=== PATIENT | female | born 1985 | race African-American/Black ===

== ENCOUNTER 2016-07-13 00:28 | Emergency (ER) | payer SELFPAY ==
[~2016-07-13] VITALS: Ht 165.1 cm; Wt 64.0 kg
[2016-07-13 00:39] VITALS: Ht 165.1 cm; Wt 64.0 kg
--- NOTE | 2016-07-13 04:19 | RADRPT ---
PROCEDURE: US right lower extremity venous Doppler CLINICAL INDICATION: Right leg swelling TECHNIQUE: Multiple sonographic images of the right lower extremity deep venous system was obtaine d utilizing grayscale, color-flow, compressive sonography and Doppler imaging with augmentation. COMPARISON: No pertinent prior examinations were submitted for comparison. FINDINGS: There is normal compressibility and flow within the right common femoral, superficial femoral, popli teal, and peroneal veins. IMPRESSION: No sonographic evidence for deep venous thrombosis. RPTAT: HIKT .Shaun Tan MD, MD Date Time Electronically viewed and signed by .Shaun Tan MD, on 07/13/2016 04:19 .T/
[2016-07-13] MEDS ORDERED: CLOT30CR24 TOP (04:44)
[2016-07-13] MEDS ORDERED: SODI126M NASAL (04:50)
[2016-07-13 04:56] VITALS: BP 126/69; PULSE 88; RESP 18; TEMP 98
--- NOTE | 2016-07-13 05:18 | ERD ---
ER Documentation Chief Complaint Date/Time DATE: 07/13/16 TIME: 05:14 Chief Complaint CONGESTION, SORE THROAT, NON-PRODUCTIVE COUGH X 3 DAYS; RLE PAIN TODAY. HPI 31-year-old female complaining of cough, congestion, sore throat, and fatigue 4 days. Cough is nonproductive. She complained of lateral right lower leg pain 1 day. Describes pain as throbbing, deep, and tight feeling. Pain is intermittent. Denies fever or chills. Denies shortness of breath. Denies injuries to her leg. ROS All systems reviewed and are negative except as per history of present illness. Medications Home Meds Active Scripts Sodium Chloride (Saline Nasal Mist) 126 Ml Mist, 2 SPRAY NASAL Q2H Y for NASAL CONGESTION, #1 BOTTLE Prov:VENANCIO BOJORQUEZ. CERTIFED REFRIGERATION OPERATOR 07/13/16 Discontinued Scripts Clotrimazole* (Clotrimazole* AF) 1% - 30 Gm Cream.gm., 1 APPLIC TOP BID for 14 Days, TUB Prov:VENANCIO BOJORQUEZ CERTIFED REFRIGERATION OPERATOR 07/13/16 Allergies Allergies: Coded Allergies: No Known Allergy (Unverified , 07/13/16) PMhx/Soc Medical and Surgical Hx: pt denies Medical Hx, pt denies Surgical Hx Hx Alcohol Use: No Hx Substance Use: No Hx Tobacco Use: No Smoking Status: Unknown if ever smoked Physical Exam Vitals Vital Signs Date Time Temp Pulse Resp B/P Pulse Ox O2 Delivery O2 Flow Rate FiO2 07/13/16 04:56 98.0 88 18 126/69 98 Room Air 07/13/16 00:39 97.8 79 18 134/58 98 Physical Exam General impression: Well-developed, well-nourished, 31-year-old female, alert, oriented, in no acute distress Head: Normocephalic, atraumatic. Eyes: PERRL, EOM normal. Conjunctiva not injected. ENT: Nasal mucosa erythematous and swollen. Oral mucosa and oropharynx are normal. Neck: Supple, nontender. No lymphanopathy. No nuchal rigidity. Respiration: Normal respiratory effort. Lungs clear to auscultate bilaterally. No wheezes, rales or rhonchi. Cardiovascular: Regular rate and rhythm. No murmurs or extra heart sounds. Extremities: Extremities normal to inspection, nontender. ROM normal. Right lower extremity not erythematous, not edematous, and nontender. Neuro: Mental status normal, speech normal. Skin: Normal turgor. No rash or lesions. Psych: Normal mood and affect. Procedures/MDM Patient is afebrile, in no respiratory distress. Lungs are clear to auscultate. I doubt that patient has pneumonia or bronchitis. Likely patient's symptoms are result of viral upper respiratory infection. Patient also complaining of right lower leg pain 1 day. Doppler ultrasound obtained to rule out DVT. No DVT is seen. Patient is able to bear weight and walk without a limp. I doubt fractures or dislocations. Patient appears well, stable for discharge and outpatient management. Medical decision making shared with patient and family. Education provided to patient and family. Patient and family expressed understanding of the plan. Medications on discharge: Saline nasal spray. Follow-up: Primary care provider in 2-3 days or return to ED if worse. Departure Diagnosis: Primary Impression: Upper respiratory infection Additional Impression: Right leg pain Condition: Stable Patient Instructions: Adult Self-Care for Colds Referrals: [facility] YOU HAVE RECEIVED A MEDICAL SCREENING EXAM AND THE RESULTS INDICATE THAT YOU DO NOT HAVE A CONDITION THAT REQUIRES URGENT TREATMENT IN THE EMERGENCY DEPARTMENT. FURTHER EVALUATION AND TREATMENT OF YOUR CONDITION CAN WAIT UNTIL YOU ARE SEEN IN YOUR DOCTORS OFFICE WITHIN THE NEXT 1-2 DAYS. IT IS YOUR RESPONSIBILITY TO MAKE AN APPOINTMENT FOR FOLOW-UP CARE. IF YOU HAVE A PRIMARY DOCTOR --you should call your primary doctor and schedule an appointment IF YOU DO NOT HAVE A PRIMARY DOCTOR YOU CAN CALL OUR PHYSICIAN REFERRAL HOTLINE AT IF YOU CAN NOT AFFORD TO SEE A PHYSICIAN YOU CAN CHOSE FROM THE FOLLOWING [facility] [address] [facility] [address] [facility] [address] [facility]. [facility] [address] [facility]. [facility] [address] [facility]. [facility] [address] [facility]. [facility]. [address] Additional Instructions: Call your primary care doctor TOMORROW for an appointment during the next 2-3 days.See the doctor sooner or return here if your condition worsens before your appointment time. VENANCIO BOJORQUEZ NP Jul 13, 2016 05:18
== END 2016-07-13 04:57 | disposition home or self-care (01) ==
LOC: FTE 00:28
DX: J06.9 Acute upper respiratory infection, unspecified (principal); M79.604 Pain in right leg
CPT/HCPCS: 93971

== ENCOUNTER 2016-11-02 22:36 | Emergency (ER) | payer MEDICAID ==
[~2016-11-02] VITALS: Ht 170.2 cm; Wt 66.5 kg
[~2016-11-02 22:36] MED LIST: SODI126M NASAL
[2016-11-02 22:40] VITALS: Ht 170.2 cm; Wt 66.5 kg
[2016-11-03] MEDS ORDERED: MECL-77 PO (00:36)
[2016-11-03 01:02] VITALS: BP 102/68; PULSE 68; RESP 16; TEMP 97.9
--- NOTE | 2016-11-03 06:28 | ERD ---
ER Documentation Chief Complaint Date/Time DATE: 11/03/16 TIME: 06:25 Chief Complaint states hearing loss left ear, head ache, abd pain since last night HPI 31-year-old female presenting with complaints of abnormal sounds in her left ear. Her symptoms started while she was sleeping. She states that she started getting a sound in her left ear that sounded like a broken radio. She has associated mild left-sided headache. The noise improved throughout the day and she was not worried about it, then it suddenly started getting worse again and she started getting some difficulty with balance and felt lightheaded. She denies any associated earache, fevers, chills, neck pain or stiffness, vision disturbance, nausea, vomiting. She states that right now she feels a little better and does not have that loud sound in her left ear. She is able to walk without any dizziness. Her headache is very mild. ROS All systems reviewed and are negative except as per history of present illness. Medications Home Meds Active Scripts Meclizine Hcl* (Meclizine Hcl*) 25 Mg Tablet, 25 MG PO Q8H Y for DIZZINESS, #20 TAB Prov:SIOMARA BERRIOS MD 11/03/16 Sodium Chloride (Saline Nasal Mist) 126 Ml Mist, 2 SPRAY NASAL Q2H Y for NASAL CONGESTION, #1 BOTTLE Prov:VENANCIO BOJORQUEZ NP 07/13/16 Allergies Allergies: Coded Allergies: No Known Allergy (Unverified , 11/02/16) PMhx/Soc Hx Alcohol Use: No Hx Substance Use: No Hx Tobacco Use: Yes Smoking Status: Light tobacco smoker FmHx Family History: No diabetes Physical Exam Vitals Vital Signs Date Time Temp Pulse Resp B/P Pulse Ox O2 Delivery O2 Flow Rate FiO2 11/03/16 01:02 97.9 68 16 102/68 100 Room Air 11/02/16 22:40 97.9 79 20 122/69 100 Physical Exam Const: Well-appearing, well-nourished, no apparent distress, nontoxic Head: Atraumatic Eyes: Normal Conjunctiva, PERRLA, EOMI, no nystagmus ENT: Normal External Ears, Nose and Mouth. TMs normal bilaterally Neck: Full range of motion. No meningismus. Resp: Clear to auscultation bilaterally Cardio: Regular rate and rhythm, no murmurs Abd: Soft, non tender, non distended. Normal bowel sounds Skin: No petechiae or rashes Back: No midline or flank tenderness Ext: No cyanosis, or edema Neur: Awake and alert and oriented 3, cranial nerves intact, strength and sensations intact in all 4 extremities, normal gait, cerebellar exam normal Psych: Normal Mood and Affect Procedures/MDM Patient is presenting with abnormal hearing in her left ear with some feelings of imbalance. There is no evidence of otitis media. I have a low suspicion for sinusitis. I do not suspect meningitis or encephalitis. I suspect the patient is suffering from acute labyrinthitis. I discussed my suspicions with the patient. I recommended follow-up with PMD in the next 2 days for reevaluation. Meclizine prescription was given to be used as needed for dizziness. Return precautions were given. Patient was discharged in stable condition. Departure Diagnosis: Primary Impression: Hearing abnormally acute Laterality: left Qualified Code: H93.232 - Hearing abnormally acute, left Additional Impression: Dizziness Condition: Stable Patient Instructions: Inner Ear Problems: Causes of Dizziness (Vertigo), Labyrinthitis Referrals: [facility] YOU HAVE RECEIVED A MEDICAL SCREENING EXAM AND THE RESULTS INDICATE THAT YOU DO NOT HAVE A CONDITION THAT REQUIRES URGENT TREATMENT IN THE EMERGENCY DEPARTMENT. FURTHER EVALUATION AND TREATMENT OF YOUR CONDITION CAN WAIT UNTIL YOU ARE SEEN IN YOUR DOCTORS OFFICE WITHIN THE NEXT 1-2 DAYS. IT IS YOUR RESPONSIBILITY TO MAKE AN APPOINTMENT FOR FOLOW-UP CARE. IF YOU HAVE A PRIMARY DOCTOR --you should call your primary doctor and schedule an appointment IF YOU DO NOT HAVE A PRIMARY DOCTOR YOU CAN CALL OUR PHYSICIAN REFERRAL HOTLINE AT IF YOU CAN NOT AFFORD TO SEE A PHYSICIAN YOU CAN CHOSE FROM THE FOLLOWING [facility] [address] [facility] [address] [facility] [address] [facility] [address] [facility] [address] [facility]. [facility]. [address] Additional Instructions: Return to the ER with any worsening symptoms. Follow up with your primary care doctor in 2-3 days if your symptoms do not improve. SIOMARA BERRIOS MD November 03, 2016 06:28
== END 2016-11-03 01:04 | disposition home or self-care (01) ==
LOC: FTE 22:36
DX: H93.232 Hyperacusis, left ear (principal); F17.210 Nicotine dependence, cigarettes, uncomplicated; R42 Dizziness and giddiness
CPT/HCPCS: 99283

== ENCOUNTER 2017-01-08 22:20 | Emergency (ER) | payer MEDICAID, OTHER ==
[~2017-01-08] VITALS: Ht 165.1 cm; Wt 66.0 kg
[~2017-01-08 22:20] MED LIST changes: +MECL-77 PO
[2017-01-08 22:27] VITALS: Ht 165.1 cm; Wt 66.0 kg
[2017-01-08] MEDS ORDERED: ONDANSETRON (ODT) 4 MG TAB ODT STA (23:51)
[2017-01-09] MEDS ORDERED: LIDOCAINE/MYLANTA 40 ML BTL PO ONE
[2017-01-09 00:43] LABS: ADD SCAN DIFF NO
[2017-01-09 00:46] LABS: BASOPHILS % 0.4 % (0.0-2.0); EOSINOPHILS # 0.2 10^3/ul (0.0-0.5); EOSINOPHILS % 3.4 % (0.0-7.0); HEMATOCRIT 34.3 % (37.0-47.0); HEMOGLOBIN 11.5 g/dl (12.0-16.0); LYMPHOCYTES # 1.5 10^3/ul (0.8-2.9); LYMPHOCYTES % 26.2 % (15.0-51.0); MEAN CORPUSCULAR HEMOGLOBIN 30.3 pg (29.0-33.0); MEAN CORPUSCULAR HGB CONC 33.5 g/dl (32.0-37.0); MEAN CORPUSCULAR VOLUME 90.5 fl (82.0-101.0); MEAN PLATELET VOLUME 10.6 fl (7.4-10.4); MONOCYTE # 0.5 10^3/ul (0.3-0.9); MONOCYTES % 8.2 % (0.0-11.0); NEUTROPHIL # 3.4 10^3/ul (1.6-7.5); NEUTROPHILS % 61.4 % (39.0-77.0); PLATELET COUNT 217 10^3/UL (140-415); RED BLOOD COUNT 3.79 10^6/ul (4.20-5.40); RED CELL DISTRIBUTION WIDTH 12.8 % (11.5-14.5); WHITE BLOOD COUNT 5.6 10^3/ul (4.8-10.8)
[2017-01-09 00:56] LABS: ADD UMIC NO; UR ASCORBIC ACID NEGATIVE (NEGATIVE); UR BILIRUBIN (Dip) NEGATIVE (NEGATIVE); UR BLOOD (Dip) NEGATIVE (NEGATIVE); UR CLARITY CLEAR (CLEAR); UR COLOR STRAW (YELLOW); UR GLUCOSE (Dip) NEGATIVE (NEGATIVE); UR KETONES (Dip) NEGATIVE (NEGATIVE); UR LEUKOCYTE ESTERASE (Dip) NEGATIVE Leu/ul (NEGATIVE); UR NITRITE (Dip) NEGATIVE (NEGATIVE); UR SPECIFIC GRAVITY (Dip) 1.005 (1.003-1.030); UR TOTAL PROTEIN (Dip) NEGATIVE (NEGATIVE); UR UROBILINOGEN (Dip) NEGATIVE (NEGATIVE)
[2017-01-09 01:11] LABS: ALBUMIN 4.5 g/dl (3.3-4.9); ALBUMIN/GLOBULIN RATIO 1.73; BILIRUBIN,INDIRECT 0.3 mg/dl (0-1.1); BILIRUBIN,TOTAL 0.3 mg/dl (0.2-1.3); CALCIUM 9.6 mg/dl (8.4-10.2); CREATININE 0.74 mg/dl (0.44-1.00); POTASSIUM 4.5 mmol/L (3.5-5.1); TOTAL PROTEIN 7.1 g/dl (6.1-8.1)
--- NOTE | 2017-01-09 01:46 | RADRPT ---
PROCEDURE: Ultrasound of the abdomen. CLINICAL INDICATION: Right upper quadrant pain. TECHNIQUE: Sonographic images of the abdomen were performed. COMPARISON: No pertinent prior examinations were submitted for comparison. FINDINGS: Liver: The liver is normal in echogencity and size measuring approximately 15.2 cm. The hepatic vei ns and portal veins are patent with appropriate directional flow. No intrahepatic ductal dilatation is seen. Gallbladder: The gallbladder is not distended and has normal wall thickness. No pericholecystic flu id or gallstones are visualized. The common duct measures 3.4 mm. Pancreas: There is limited evaluation of the pancreatic body and tail. The visualized portions of the pancreas are unremarkable. Kidneys: The right kidney measures 10.3 cm. There is normal corticomedullary differentiation. Ther e is no evidence of renal calculus or hydronephrosis. IVC: The visualized portion of the inferior vena cava is unremarkable. Aorta: Normal in size. Free fluid: None. IMPRESSION: Unremarkable right upper quadrant ultrasound. RPTAT: HIKT .Shaun Tan MD, MD Date Time Electronically viewed and signed by .Shaun Tan MD, on 01/09/2017 01:46 .T/
[2017-01-09] MEDS ORDERED: LOPE2CAP PO (01:56)
[2017-01-09] MEDS ORDERED: SIME125T7 PO (01:56)
[2017-01-09] MEDS ORDERED: ONDA-43 PO (01:57)
[2017-01-09] MEDS ORDERED: FAMO-96 PO (01:58)
--- NOTE | 2017-01-09 02:34 | ERD ---
ER Documentation Chief Complaint Date/Time DATE: 01/09/17 TIME: 02:26 Chief Complaint diarrhea for a week, nausea, loss of appetite and fatigue HPI This is a 31-year-old female that presents to the ER with multiple complaints. Patient states that for the last week she has had diarrhea and feels nauseous. She also complains that she feels bloated. She however denies any vomiting. She is also complaining of extreme fatigue, dizziness which is described as if she is going to fall, she also has decreased appetite and epigastric pain that radiates throughout her upper abdomen. Patient is additionally complaining of heart palpitations, she denies any chest pain or shortness of breath. Patient is worried that she has a leaky gut syndrome. Patient denies any urinary frequency or dysuria. She denies any fevers or chills. She denies any cough or cold symptoms. ROS 12 point review of systems was done, all negative except per HPI. Medications Home Meds Active Scripts Famotidine* (Pepcid*) 20 Mg Tablet, 20 MG PO BID for 14 Days, TAB Prov:XOCHITL FLANNERY 01/09/17 Ondansetron Hcl* (Zofran*) 4 Mg Tab, 4 MG PO Q4H Y for NAUSEA AND OR VOMITING for 3 Days, TAB Prov:XOCHITL FLANNERY 01/09/17 Loperamide Hcl* (Imodium*) 2 Mg Capsule, 2 MG PO .AFTER EA LOOSE BM Y for DIARRHEA, #10 TAB Prov:XOCHITL FLANNERY 01/09/17 Simethicone (Gas-X) 125 Mg Tab.chew, 125 MG PO BID for 3 Days, TAB.CHEW Prov:XOCHITL FLANNERY 01/09/17 Meclizine Hcl* (Meclizine Hcl*) 25 Mg Tablet, 25 MG PO Q8H Y for DIZZINESS, #20 TAB Prov:SIOMARA BERRIOS MD 11/03/16 Sodium Chloride (Saline Nasal Mist) 126 Ml Mist, 2 SPRAY NASAL Q2H Y for NASAL CONGESTION, #1 BOTTLE Prov:VENANCIO BOJORQUEZ NP 07/13/16 Allergies Allergies: Coded Allergies: No Known Allergy (Unverified , 11/02/16) PMhx/Soc Medical and Surgical Hx: pt denies Medical Hx, pt denies Surgical Hx Hx Alcohol Use: No Hx Substance Use: No Hx Tobacco Use: Yes Smoking Status: Current every day smoker Physical Exam Vitals Vital Signs Date Time Temp Pulse Resp B/P Pulse Ox O2 Delivery O2 Flow Rate FiO2 01/08/17 22:27 98.0 85 18 127/73 100 Physical Exam GENERAL: The patient is well developed and appropriate for usual state of health , in no apparent distress. HEENT: Atraumatic. Conjunctivae are pink. Pupils equal, round, and reactive to light. Extraocular muscles are grossly intact. No nystagmus. Bilateral tympanic membranes are clear with no evidence of erythema, bulging or perforation. NECK: C-spine is soft and supple. There is no cervical lymphadenopathy. CHEST: Clear to auscultation bilaterally. There are no rales, wheezes or rhonchi. HEART: Regular rate and rhythm. No murmurs, clicks, rubs or gallops. EXTREMITIES: Equal pulses bilaterally. There is no peripheral clubbing, cyanosis or edema. No focal swelling or erythema. Full range of motion. Grossly neurovascularly intact. NEURO: Alert and oriented. Cranial nerves II through XII are intact. Motor strength in all 4 extremities with 5/5 strength. Sensation grossly intact. Normal speech and gait. Negative Rhomberg. +2 DTRs. SKIN: There is no apparent rash or petechia. The skin is warm and dry. Result Diagram: 01/09/17 0022 01/09/17 0022 Results 24 hrs Laboratory Tests Test 01/09/17 00:00 01/09/17 00:22 Urine Color STRAW Urine Clarity CLEAR Urine pH 7.0 Urine Specific [place] 1.005 Urine Ketones NEGATIVEmg/dL Urine Nitrite NEGATIVEmg/dL Urine Bilirubin NEGATIVEmg/dL Urine Urobilinogen NEGATIVEmg/dL Urine Leukocyte Esterase NEGATIVELeu/ul Urine Hemoglobin NEGATIVEmg/dL Urine Glucose NEGATIVEmg/dL Urine Total Protein NEGATIVEmg/dl White Blood Count 5.610^3/ul Red Blood Count 3.7910^6/ul Hemoglobin 11.5g/dl Hematocrit 34.3% Mean Corpuscular Volume 90.5fl Mean Corpuscular Hemoglobin 30.3pg Mean Corpuscular Hemoglobin Concent 33.5g/dl Red Cell Distribution Width 12.8% Platelet Count 15574^3/UL Mean Platelet Volume 10.6fl Neutrophils % 61.4% Lymphocytes % 26.2% Monocytes % 8.2% Eosinophils % 3.4% Basophils % 0.4% Nucleated Red Blood Cells % 0.0/100WBC Neutrophils # 3.410^3/ul Lymphocytes # 1.510^3/ul Monocytes # 0.510^3/ul Eosinophils # 0.210^3/ul Basophils # 0.010^3/ul Nucleated Red Blood Cells # 0.010^3/ul Sodium Level 140mmol/L Potassium Level 4.5mmol/L Chloride Level 99mmol/L Carbon Dioxide Level 29mmol/L Anion Gap 17 Blood Urea Nitrogen 7mg/dl Creatinine 0.74mg/dl Glucose Level 101mg/dl Calcium Level 9.6mg/dl Total Bilirubin 0.3mg/dl Direct Bilirubin 0.00mg/dl Indirect Bilirubin 0.3mg/dl Aspartate Amino Transf (AST/SGOT) 17IU/L Alanine Aminotransferase (ALT/SGPT) 24IU/L Alkaline Phosphatase 43IU/L Total Protein 7.1g/dl Albumin 4.5g/dl Globulin 2.60g/dl Albumin/Globulin Ratio 1.73 Lipase 39U/L Current Medications Medications (Trade) Dose Ordered Sig/Mandy Route PRN Reason Start Time Stop Time Status Last Admin Dose Admin Miscellaneous Medication (Gi Cocktail (2)) 40 ml ONCE ONCE PO 01/09/17 00:00 01/09/17 00:01 DC Ondansetron HCl (Zofran Odt) 4 mg ONCE STAT ODT 01/08/17 23:51 01/08/17 23:55 DC Procedures/MDM This is a 31-year-old female that presents to the ER with multiple complaints. Patient diarrhea and nausea is likely viral in etiology. Patient's fatigue and dizziness may be secondary to viral process. There is no evidence of leukocytosis, transaminitis, increase in lipase or electrolyte abnormalities. Because patient had epigastric pain ultrasound of the gallbladder was taken however there was no evidence of gallstones. EKG was taken secondary to patient complaining of palpitations, EKG was normal: [address] elevation or t wave inversions. Patient is afebrile and well-appearing. I do not believe patient has leaky gut syndrome and she has not had any resection of her bowels. Patient will be sent home with Imodium, Zofran, famotidine. She is to follow- up with her primary care doctor within 1-2 days return to ER sooner if symptoms worsen. My medical decision making shared with the patient she understands and agrees with plan. Departure Diagnosis: Primary Impression: Weakness Condition: Stable Patient Instructions: Weakness, Unk Cause Additional Instructions: Call your primary care doctor TOMORROW for an appointment during the next 1-2 days.See the doctor sooner or return here if your condition worsens before your appointment time. XOCHITL FLANNERY Jan 09, 2017 02:33
== END 2017-01-09 02:09 | disposition home or self-care (01) ==
LOC: FTE 22:20
DX: R53.1 Weakness (principal); R11.0 Nausea; F17.210 Nicotine dependence, cigarettes, uncomplicated
CPT/HCPCS: 76705; 80053; 81003; 83690; 85025; 93005; Z7502; Z7610

== ENCOUNTER 2017-02-02 15:22 | Emergency (ER) | payer OTHER ==
[~2017-02-02] VITALS: Ht 170.2 cm; Wt 63.6 kg
[~2017-02-02 15:22] MED LIST changes: +FAMO-96 PO; +LOPE2CAP PO; +ONDA-43 PO; +SIME125T7 PO
[2017-02-02 15:25] VITALS: Ht 170.2 cm; Wt 63.6 kg
--- NOTE | 2017-02-02 16:37 | ERD ---
ER Documentation Chief Complaint Date/Time DATE: 02/02/17 TIME: 16:27 Chief Complaint nausea and fatigue x1wk. BIB R881 HPI This 31-year-old female brought in by paramedics to emergency for evaluation of fatigue, nausea, "thyroid burning", abdominal pain described as "heartburn" and fatigue. Patient denies chest pain, shortness of breath, dizziness, palpitation. Patient states that she was seen a month ago and now she feels worse than she did at that particular visit. Chart review shows she had a full evaluation including labs which documents no acute anemia or infectious process. Patient denies seeing her primary care physician but states she has an appointment February 17 for a physical exam. Patient reports she has 1 child a 6-year-old daughter at home, reports she has poor diet and frequently skips meals. States that she gets nausea with throat burning and sore throat intermittently, patient states she did not want to take any medication for her "heartburn symptoms and has not seen a physician for this complaint. ROS All systems reviewed and are negative except as per history of present illness. Medications Home Meds Active Scripts Famotidine* (Pepcid*) 20 Mg Tablet, 20 MG PO BID for 14 Days, TAB Prov:XOCHITL FLANNERY 01/09/17 Ondansetron Hcl* (Zofran*) 4 Mg Tab, 4 MG PO Q4H Y for NAUSEA AND OR VOMITING for 3 Days, TAB Prov:XOCHITL FLANNERY 01/09/17 Loperamide Hcl* (Imodium*) 2 Mg Capsule, 2 MG PO .AFTER EA LOOSE BM Y for DIARRHEA, #10 TAB Prov:XOCHITL FLANNERY 01/09/17 Simethicone (Gas-X) 125 Mg Tab.chew, 125 MG PO BID for 3 Days, TAB.CHEW Prov:XOCHITL FLANNERY 01/09/17 Meclizine Hcl* (Meclizine Hcl*) 25 Mg Tablet, 25 MG PO Q8H Y for DIZZINESS, #20 TAB Prov:SIOMARA BERRIOS MD 11/03/16 Sodium Chloride (Saline Nasal Mist) 126 Ml Mist, 2 SPRAY NASAL Q2H Y for NASAL CONGESTION, #1 BOTTLE Prov:VENANCIO BOJORQUEZ NP 07/13/16 Allergies Allergies: Coded Allergies: No Known Allergy (Unverified , 11/02/16) PMhx/Soc Medical and Surgical Hx: pt denies Medical Hx, pt denies Surgical Hx Hx Alcohol Use: No Hx Substance Use: No Hx Tobacco Use: Yes Smoking Status: Never smoker Physical Exam Vitals Vital Signs Date Time Temp Pulse Resp B/P Pulse Ox O2 Delivery O2 Flow Rate FiO2 02/02/17 15:25 98.4 90 20 118/74 100 Vitals stable, triage notes reviewed Physical Exam Const: Well-nourished, well-appearing, no acute distress Head: Atraumatic Eyes: Normal Conjunctiva, PERRLA, EOM ENT: Normal External Ears, Nose and Mouth, mucous membranes moist. Neck: Full range of motion. No goiter, thyroid nontender Resp: Respirations even and unlabored no respiratory disc Cardio: Abd: Soft, tender epigastrium, could have Collins sign, negative McBurney's point tenderness Skin: Back: Ext: Neur: Awake and alert Psych: Normal Mood and Affect Results 24 hrs . Procedures/MDM This 31-year-old female presents to emergency department for fatigue, and "thyroid pain". I have no suspicion for a thyroid storm, or thyroiditis. Patient is well appearing without goiter and nontender thyroid gland. Patient' s heart rate has a regular rate and rhythm. I have no suspicion for a acute anemia or infectious process. Patient was seen 4 weeks ago with normal laboratory findings. I have no suspicion for acute coronary syndromes, pulmonary embolism, thyroid cancer, patient's physical exam and history support gastroesophageal reflux disease. Patient agrees to a trial of Zantac 150 mg twice daily for the next 15 days until follow-up with primary care physician. Patient encouraged to eat regular meals, journal dietary intake, increase fluids , increase rest. Return to emergency department for vomiting blood or rectal bleeding, abdominal pain epigastric pain not improving with medication. I feel the patient is stable for discharge at this time. I have discussed results, examination findings, the treatment plan with the patient and family present prior to discharge. Indications for emergent reevaluation, side effects of medication were also discussed. All questions were answered. Patient verbalizes understanding and agrees with plan of care. Departure Diagnosis: Primary Impression: GERD (gastroesophageal reflux disease) Esophagitis presence: esophagitis presence not specified Qualified Code: K21.9 - Gastroesophageal reflux disease, esophagitis presence not specified Condition: Good Patient Instructions: Gerd (Adult), Gerd (Child) Additional Instructions: Thank you for for coming to [facility] for your care today. Please ask your nurse or provider if you have questions about your care today and do not leave until all your questions have been answered. Please use any medications given as directed and follow-up with your doctor (or the doctor you were referred to) in the next 2-3 days. If you do not have a primary care doctor you may follow up at the [facility] (listed below). You may also use motrin and tylenol as needed for fever and/or pain unless instructed otherwise by your provider or nurse. Indications for more urgent follow-up have been discussed, but you may return to the Emergency Department at ANY time for any worrisome or worsening symptoms. If you have abdominal pain, please know that no test or exam you received is perfect and you should follow up within 8 hours for continued pain. If you had any imaging studies today, such as an X-Ray or CT Scan, these studies will be reviewed later by a radiologist. You will be called if there are important findings that were not identified today, so make sure the contact information you provided at registration is correct. If you received any narcotic pain control medicine today, such as Vicodin, Morphine or Dilaudid, your coordination and judgment may be affected for a number of hours. Please do not drive or operate heavy machinery, and you may want someone to assist you at home. If you were given a prescription for narcotic medication, be aware that it is very addictive- use sparingly and only if necessary. MICHAEL ORDOÑEZ Feb 02, 2017 16:37
[2017-02-02] MEDS ORDERED: RANI150T9 PO (16:38)
== END 2017-02-02 16:56 | disposition home or self-care (01) ==
LOC: FTE 15:22
DX: K21.9 Gastro-esophageal reflux disease without esophagitis (principal)
CPT/HCPCS: 99283

== ENCOUNTER 2017-04-22 00:47 | Emergency (ER) | payer SELFPAY ==
[~2017-04-22] VITALS: Ht 167.6 cm; Wt 68.0 kg
[~2017-04-22 00:47] MED LIST changes: +RANI150T9 PO
[2017-04-22 00:54] VITALS: Ht 167.6 cm; Wt 68.0 kg
--- NOTE | 2017-04-22 02:53 | ERD ---
ER Documentation Chief Complaint Chief Complaint painful urination, back pain HPI This is a 31-year-old female presenting to emerge department for dysuria, urinary frequency and urgency intermittently 2 weeks. Patient states she has had intermittent symptoms for the past 2 weeks. Patient states dysuria became worse tonight. Patient does have intermittent right lower back pain. Patient states this has improved since arriving to the ED. Patient denies fevers or chills. No nausea or vomiting. No diarrhea or constipation. No abdominal pain , pelvic pain or flank pain. ROS All systems reviewed and are negative except as per history of present illness. Medications Home Meds Active Scripts Phenazopyridine Hcl* (Pyridium*) 100 Mg Tab, 100 MG PO TID Y for URINARY PAIN, # 8 TAB Prov:JARAD OLSON NP 04/22/17 Nitrofurantoin Monohyd Macrocr* (Macrobid*) 100 Mg Capsr, 100 MG PO BID for 5 Days, CAP Prov:JARAD OLSON NP 04/22/17 Ranitidine Hcl* (Zantac*) 150 Mg Tablet, 150 MG PO BID Y for EPIGASTRIC PAIN, # 30 TAB Prov:MICHAEL ORDOÑEZ 02/02/17 Famotidine* (Pepcid*) 20 Mg Tablet, 20 MG PO BID for 14 Days, TAB Prov:XOCHITL FLANNERY 01/09/17 Ondansetron Hcl* (Zofran*) 4 Mg Tab, 4 MG PO Q4H Y for NAUSEA AND OR VOMITING for 3 Days, TAB Prov:XOCHITL FLANNERY 01/09/17 Loperamide Hcl* (Imodium*) 2 Mg Capsule, 2 MG PO .AFTER EA LOOSE BM Y for DIARRHEA, #10 TAB Prov:XOCHITL FLANNERY 01/09/17 Simethicone (Gas-X) 125 Mg Tab.chew, 125 MG PO BID for 3 Days, TAB.CHEW Prov:XOCHITL FLANNERY 01/09/17 Meclizine Hcl* (Meclizine Hcl*) 25 Mg Tablet, 25 MG PO Q8H Y for DIZZINESS, #20 TAB Prov:SIOMARA BERRIOS MD 11/03/16 Sodium Chloride (Saline Nasal Mist) 126 Ml Mist, 2 SPRAY NASAL Q2H Y for NASAL CONGESTION, #1 BOTTLE Prov:VENANCIO BOJORQUEZ NP 07/13/16 Allergies Allergies: Coded Allergies: No Known Allergy (Unverified , 11/02/16) PMhx/Soc Medical and Surgical Hx: pt denies Medical Hx, pt denies Surgical Hx Hx Alcohol Use: No Hx Substance Use: No Hx Tobacco Use: Yes Smoking Status: Former smoker Physical Exam Vitals Vital Signs Date Time Temp Pulse Resp B/P Pulse Ox O2 Delivery O2 Flow Rate FiO2 04/22/17 00:54 98.6 88 20 119/69 100 Physical Exam Const: No acute distress, alert Head: Atraumatic Eyes: Normal Conjunctiva ENT: Normal External Ears, Nose and Mouth. Neck: Full range of motion..~ No meningismus. Resp: Clear to auscultation bilaterally. No wheezing, rhonchi or crackles. No stridor or labored breathing. Cardio: Regular rate and rhythm, no murmurs Abd: Soft, suprapubic tenderness , non distended. Normal bowel sounds Skin: No petechiae or rashes Back: No midline or flank tenderness Ext: No cyanosis, or edema Neur: Awake and alert Psych: Normal Mood and Affect Results 24 hrs Laboratory Tests Test 04/22/17 02:44 Bedside Urine pH (LAB) 5.5 Bedside Urine Protein (LAB) Negative Bedside Urine Glucose (UA) Negative Bedside Urine Ketones (LAB) Negative Bedside Urine Blood Negative Bedside Urine Nitrite (LAB) Negative Bedside Urine Leukocyte Esterase (L 1+ Procedures/MDM MDM: This is a 31-year-old female presenting to emergency department for dysuria , urinary frequency and urinary urgency intermittently 2 weeks. Urine dip shows 1+ leukocyte Estrace. Urine is negative. Patient denies any gross hematuria. No CVA tenderness. Patient is afebrile vital signs are stable. Patient is well-appearing and in no acute distress. Patient is nontoxic-appearing. Differential diagnosis includes but not limited to UTI, vaginitis, urethritis, pelvic inflammatory disease, nephrolithiasis, painful bladder syndrome, gonorrhea, chlamydia, herpes simplex virus, genital warts or trichomoniasis. Low suspicion for pyelonephritis due to patient being afebrile without chills. No flank pain, no CVA tenderness. Patient denies nausea or vomiting. Patient is appropriate for outpatient management and will be given prescription for Macrobid. Instructed patient to increase fluid intake and rest as needed. Instructed patient to follow-up with primary care provider in the next 2-3 days for reassessment. Return to ED for any high fever, chest pain, difficulty breathing, shortness breath, wheezing, vomiting, diarrhea, abdominal pain or any new or worsening symptoms. Patient verbalizes understanding. All questions answered at discharge. Disclaimer: Inadvertent spelling and grammatical errors are likely due to EHR/ dictation software use and do not reflect on the overall quality of patient care. Also, please note that the electronic time recorded on this note does not necessarily reflect the actual time of the patient encounter. Departure Diagnosis: Primary Impression: UTI (urinary tract infection) Urinary tract infection type: acute cystitis Hematuria presence: without hematuria Qualified Code: N30.00 - Acute cystitis without hematuria Condition: JARAD Hammer NP Apr 22, 2017 02:53
[2017-04-22] MEDS ORDERED: PHEN-537 PO (02:54)
[2017-04-22] MEDS ORDERED: NITR-58 PO (02:54)
[2017-04-22 03:23] VITALS: BP 120/68; PULSE 85; RESP 20; TEMP 98.6
== END 2017-04-23 03:23 | disposition home or self-care (01) ==
LOC: FTE 00:47
DX: N30.00 Acute cystitis without hematuria (principal); Z87.891 Personal history of nicotine dependence
CPT/HCPCS: 81003; 99283

== ENCOUNTER 2017-11-10 22:42 | Emergency (ER) | END 2017-11-10 23:45 | disposition left against medical advice (07) ==

== ENCOUNTER 2018-01-14 00:45 | Emergency (ER) | END 2018-01-14 02:18 | disposition left against medical advice (07) ==

== ENCOUNTER 2018-05-29 19:56 | Emergency (ER) | END 2018-05-29 23:13 | disposition home or self-care (01) ==

== ENCOUNTER 2019-01-04 21:31 | Emergency (ER) | payer SELFPAY ==
[~2019-01-04] VITALS: Ht 165.1 cm; Wt 69.9 kg
[~2019-01-04 21:31] MED LIST changes: +IBUP-1542 PO; +NITR-58 PO; -ONDA-43 PO; +ONDA4TAB13 PO; +PHEN-537 PO; +RANI150T35 PO; -RANI150T9 PO
[2019-01-04 21:38] VITALS: BP 116/75; PULSE 82; RESP 18; Ht 165.1 cm; Wt 69.9 kg
== END 2019-01-05 01:29 | disposition left against medical advice (07) ==
LOC: FTE 21:31
DX: Z53.21 Procedure and treatment not carried out due to patient leaving prior to being seen by health care provider (principal)

== ENCOUNTER 2019-01-28 02:53 | Emergency (ER) | payer OTHER ==
[~2019-01-28] VITALS: Ht 167.6 cm; Wt 68.2 kg
[~2019-01-28 02:53] MED LIST changes: +AMOX1TAB10 PO; +BISA-57 PO; +NAR2I NS; +ONDA8TAB14 PO; +OXYC-279 PO
[2019-01-28 02:57] VITALS: Ht 167.6 cm; Wt 68.2 kg
[2019-01-28 06:51] VITALS: BP 99/53; PULSE 84; RESP 17
== END 2019-01-28 06:52 | disposition home or self-care (01) ==
LOC: FTE 02:53
DX: K57.32 Diverticulitis of large intestine without perforation or abscess without bleeding (principal); N83.201 Unspecified ovarian cyst, right side
CPT/HCPCS: 74177; 76705; 80053; 81001; 81025; 83690; 85025; J1170; J1885; J2405; J7030; Q9967; Z7610; 36415; 96374; 96375; 96376